=== PATIENT | male | born 1940 | race Asian ===

== ENCOUNTER 2016-08-19 11:49 | Emergency (ER) | payer MEDICARE, OTHER ==
[~2016-08-19] VITALS: Ht 175.3 cm; Wt 94.4 kg
[2016-08-19] MEDS ORDERED: SODIUM CHLORIDE FLUSH 10ML SYR IVF ONE (12:30)
[2016-08-19] MEDS ORDERED: ASPIRIN 81 MG TABLET CHEW PO ONE (12:30)
[2016-08-19] MEDS ORDERED: ATOR80TA75 PO (12:30)
[2016-08-19] MEDS ORDERED: SODIUM CHLORIDE 0.9% 1,000ML IVBOLUS ONE (12:30)
[2016-08-19] MEDS ORDERED: METF500T4 PO (12:30)
[2016-08-19] MEDS ORDERED: LISI-167 PO (12:30)
[2016-08-19] MEDS ORDERED: ASPI81TA50 PO (12:30)
[2016-08-19] MEDS ORDERED: ASPIRIN 81 MG TABLET CHEW ONE (12:32)
[2016-08-19 12:47] LABS: BLOOD UREA NITROGEN 14 mg/dL (7-18)
[2016-08-19 12:53] LABS: ASPARTATE AMINO TRANSFERASE 19 U/L (15-37)
[2016-08-19 12:55] LABS: IS PT STATUS REG ER OR PRE ER? YES
[2016-08-19 13:49] VITALS: BP 169/90
== END 2016-08-19 13:51 | disposition home or self-care (01) ==
LOC: ED 12:54
DX: R00.2 Palpitations (principal); I10 Essential (primary) hypertension; E11.9 Type 2 diabetes mellitus without complications; E78.00 Pure hypercholesterolemia, unspecified
CPT/HCPCS: 36415; 71010; 80053; 83880; 84484; 85025; 93005; 99285; J7030

== ENCOUNTER → 2016-11-14 | Outpatient (CLI) | payer OTHER ==
[~2016-11-14] MED LIST: ASPI81TA50 PO; ATOR80TA75 PO; LISI-167 PO; METF500T4 PO
== END | disposition home or self-care (01) ==
LOC: CFH 08:14
PROVIDERS: ATTEND Physician Assistant Medical
DX: R94.31 Abnormal electrocardiogram [ECG] [EKG] (principal); I10 Essential (primary) hypertension
CPT/HCPCS: 78452; 93017; A9502

== ENCOUNTER 2018-10-10 10:51 | Inpatient (IN) | payer MEDICARE, OTHER ==
[~2018-10-10] VITALS: Ht 175.3 cm; Wt 79.8 kg
[~2018-10-10 10:51] MED LIST changes: +ATOR-2 PO; -ATOR80TA75 PO; +METF500T17 PO; -METF500T4 PO
[2018-10-10] MEDS ORDERED: SODIUM CHLORIDE FLUSH 10ML SYR IVF ONE (11:30)
[2018-10-10 11:53] LABS: BASOPHILS # (AUTO) 0.01 x10^3/uL (0-0.1); BASOPHILS % (AUTO) 0 % (0-1); EOSINOPHILS # (AUTO) 0.01 x10^3/uL (0-0.4); EOSINOPHILS % (AUTO) 0 % (1-7); LYMPHOCYTES % (AUTO) 11 % (22-44); MD NO; MEAN CORPUSCULAR HEMOGLOBIN 29.3 pg (27.5-34.5); MEAN CORPUSCULAR HGB CONC 32.6 g/dL (33.2-36.2); MEAN CORPUSCULAR VOLUME 89.9 fL (81-97); MEAN PLATELET VOLUME 8.1 fL (7.4-10.4); MONOCYTES # (AUTO) 0.41 x10^3/uL (0.2-0.8); MONOCYTES % (AUTO) 5 % (2-9); NEUTROPHILS # (AUTO) 7.72 x10^3/uL (1.8-6.8); NEUTROPHILS % (AUTO) 84 % (42-75); PLATELET COUNT 188 x10^3/uL (130-400); RED BLOOD COUNT 4.09 x10^6/uL (4.38-5.82); RED CELL DISTRIBUTION WIDTH 14.7 % (9.4-14.8)
[2018-10-10 12:03] LABS: INTERNATIONAL NORMALIZED RATIO 1.05 (0.93-1.1)
[2018-10-10 12:04] LABS: ALANINE AMINOTRANSFERASE 22 U/L (12-78); ANION GAP 7 mmol/L (5-15); CALCIUM 8.3 mg/dL (8.5-10.1); CHLORIDE 109 mmol/L (98-107)
[2018-10-10 12:09] LABS: ALKALINE PHOSPHATASE 64 U/L (45-117); BILIRUBIN,TOTAL 0.4 mg/dL (0.2-1.0); CREATININE 0.88 mg/dL (0.7-1.3); TOTAL PROTEIN 6.2 g/dL (6.4-8.2); TROPONIN I 0.106 ng/mL (0.000-0.045)
--- NOTE | 2018-10-10 12:59 | NUR ---
RECEIVED REPORT FROM JITENDRA CHAVARRIA AND ASSUMED CARE OF PT. FAMILY AT BEDSIDE. PT ON MONITOR, AFIB. AWARE OF INTENTION TO ADMIT.
[2018-10-10] MEDS ORDERED: PANTOPRAZOLE 80 MG in SODIUM CHLORIDE 0.9% 50 ML IV ONE (14:30)
[2018-10-10] MEDS ORDERED: SODIUM CHLORIDE FLUSH 10ML SYR IVF PRN (14:30)
[2018-10-10] MEDS ORDERED: LISI-170 PO (14:36)
--- NOTE | 2018-10-10 14:59 | NUR ---
HOSPITALIST AT BEDSIDE EXAMINING PT. PT GIVING CLEAR ANSWERS ABOUT HISTORY.
--- NOTE | 2018-10-10 15:11 | NUR ---
Lunch break RN: Pt aware of admission status. Protonix bolus hung. Family @ BS, call light within reach.
--- NOTE | 2018-10-10 16:08 | NUR ---
REPORT TO GARCIA CHAVARRIA.
[2018-10-10] MEDS ORDERED: ONDANSETRON ODT 4 MG PO PRN (17:00)
[2018-10-10] MEDS ORDERED: ONDANSETRON 2MG/ML, 2ML IVPush PRN (17:00)
[2018-10-10] MEDS ORDERED: LABETALOL 5MG/ML, 20ML IVPush PRN (17:00)
[2018-10-10] MEDS: PANTOPRAZOLE 80 MG in SODIUM CHLORIDE 0.9% 100 ML IV SCH (17:45)
[2018-10-10 17:52] LABS: FREE T4 (FREE THYROXINE) 0.92 ng/dL (0.76-1.46); TROPONIN I 0.106 ng/mL (0.000-0.045)
[2018-10-10 19:35] VITALS: BP 98/58
[2018-10-10 20:43] LABS: MICROSCOPIC NOT IND
[2018-10-10 20:55] LABS: CULTURE INDICATED? NO
[2018-10-10] MEDS ORDERED: ATORVASTATIN 80 MG TABLET PO SCH (21:00)
[2018-10-10] MEDS: ATORVASTATIN 80 MG TABLET PO SCH (21:09)
[2018-10-10] MEDS ORDERED: CAPSAICIN CRM 0.075%, 60GM TP PRN (23:00)
[2018-10-10 23:09] LABS: TROPONIN I 0.102 ng/mL (0.000-0.045)
[2018-10-11 00:56] VITALS: BP 128/71
[2018-10-11] MEDS: PANTOPRAZOLE 80 MG in SODIUM CHLORIDE 0.9% 100 ML IV SCH ×2 (01:53→11:21)
[2018-10-11 05:20] LABS: BASOPHILS # (AUTO) 0.02 x10^3/uL (0-0.1); BASOPHILS % (AUTO) 0 % (0-1); EOSINOPHILS # (AUTO) 0.05 x10^3/uL (0-0.4); EOSINOPHILS % (AUTO) 1 % (1-7); LYMPHOCYTES # (AUTO) 1.65 x10^3/uL (1-3.4); LYMPHOCYTES % (AUTO) 24 % (22-44); MD NO; MEAN CORPUSCULAR HEMOGLOBIN 29.4 pg (27.5-34.5); MEAN CORPUSCULAR HGB CONC 31.9 g/dL (33.2-36.2); MEAN CORPUSCULAR VOLUME 92.2 fL (81-97); MEAN PLATELET VOLUME 8.8 fL (7.4-10.4); MONOCYTES # (AUTO) 0.55 x10^3/uL (0.2-0.8); MONOCYTES % (AUTO) 8 % (2-9); NEUTROPHILS # (AUTO) 4.58 x10^3/uL (1.8-6.8); NEUTROPHILS % (AUTO) 67 % (42-75); PLATELET COUNT 177 x10^3/uL (130-400); RED BLOOD COUNT 3.69 x10^6/uL (4.38-5.82)
[2018-10-11 05:32] LABS: CALCIUM 8.3 mg/dL (8.5-10.1); CHLORIDE 111 mmol/L (98-107)
[2018-10-11 05:46] LABS: ALANINE AMINOTRANSFERASE 22 U/L (12-78); ALBUMIN 2.9 g/dL (3.4-5.0); ALKALINE PHOSPHATASE 65 U/L (45-117); ANION GAP 5 mmol/L (5-15); BILIRUBIN,TOTAL 0.5 mg/dL (0.2-1.0); THYROID STIMULATING HORMONE 0.318 mIU/L (0.358-3.740)
[2018-10-11 08:24] LABS: TROPONIN I 0.106 ng/mL (0.000-0.045)
[2018-10-11 08:59] VITALS: BP 130/70
[2018-10-11] MEDS: LISINOPRIL 20 MG TABLET PO SCH (09:47)
[2018-10-11] MEDS: D5%-0.45NACL+KCL 20MEQ 1,000 ML IV SCH ×2 (11:21→20:47)
[2018-10-11 14:58] VITALS: BP 123/81
[2018-10-11] MEDS ORDERED: PROPOFOL 10 MG/ML, 20ML ONE (15:53)
[2018-10-11 20:00] VITALS: BP 115/61
[2018-10-11] MEDS: ATORVASTATIN 80 MG TABLET PO SCH (20:47)
[2018-10-12 00:33] VITALS: BP 114/67
[2018-10-12] MEDS: PANTOPRAZOLE 80 MG in SODIUM CHLORIDE 0.9% 100 ML IV SCH (01:38)
[2018-10-12] MEDS: D5%-0.45NACL+KCL 20MEQ 1,000 ML IV SCH (03:45)
[2018-10-12 05:29] LABS: ALBUMIN 2.9 g/dL (3.4-5.0); ANION GAP 6 mmol/L (5-15); BASOPHILS # (AUTO) 0.02 x10^3/uL (0-0.1); BASOPHILS % (AUTO) 0 % (0-1); CHLORIDE 111 mmol/L (98-107); EOSINOPHILS # (AUTO) 0.05 x10^3/uL (0-0.4); EOSINOPHILS % (AUTO) 1 % (1-7); LYMPHOCYTES # (AUTO) 1.43 x10^3/uL (1-3.4); LYMPHOCYTES % (AUTO) 24 % (22-44); MD NO; MEAN CORPUSCULAR HEMOGLOBIN 29.9 pg (27.5-34.5); MEAN CORPUSCULAR HGB CONC 32.6 g/dL (33.2-36.2); MEAN CORPUSCULAR VOLUME 91.6 fL (81-97); MEAN PLATELET VOLUME 8.6 fL (7.4-10.4); MONOCYTES # (AUTO) 0.42 x10^3/uL (0.2-0.8); MONOCYTES % (AUTO) 7 % (2-9); NEUTROPHILS # (AUTO) 4.11 x10^3/uL (1.8-6.8); NEUTROPHILS % (AUTO) 68 % (42-75); PLATELET COUNT 181 x10^3/uL (130-400); RED BLOOD COUNT 3.35 x10^6/uL (4.38-5.82); RED CELL DISTRIBUTION WIDTH 14.8 % (9.4-14.8)
[2018-10-12 05:33] LABS: ALANINE AMINOTRANSFERASE 20 U/L (12-78); ALKALINE PHOSPHATASE 67 U/L (45-117); BILIRUBIN,TOTAL 0.6 mg/dL (0.2-1.0); CREATININE 0.91 mg/dL (0.7-1.3)
[2018-10-12 07:45] VITALS: BP 131/63
[2018-10-12] MEDS: LISINOPRIL 20 MG TABLET PO SCH (08:03)
[2018-10-12] MEDS: PANTOPRAZOLE 40 MG IV IVPush SCH ×2 (09:59→20:34)
[2018-10-12] MEDS ORDERED: FUROSEMIDE 20 MG TABLET PO SCH (11:00)
[2018-10-12 12:53] VITALS: BP 138/65
[2018-10-12 19:30] VITALS: BP 101/61
[2018-10-12] MEDS: ATORVASTATIN 80 MG TABLET PO SCH (20:34)
[2018-10-12] MEDS ORDERED: SPIRONOLACTONE 25 MG TABLET PO SCH (21:00)
[2018-10-13 01:06] VITALS: BP 108/63
[2018-10-13 05:46] LABS: BASOPHILS # (AUTO) 0.01 x10^3/uL (0-0.1); BASOPHILS % (AUTO) 0 % (0-1); EOSINOPHILS # (AUTO) 0.07 x10^3/uL (0-0.4); EOSINOPHILS % (AUTO) 1 % (1-7); LYMPHOCYTES # (AUTO) 1.35 x10^3/uL (1-3.4); LYMPHOCYTES % (AUTO) 26 % (22-44); MD NO; MEAN CORPUSCULAR HEMOGLOBIN 29.6 pg (27.5-34.5); MEAN CORPUSCULAR HGB CONC 32.1 g/dL (33.2-36.2); MEAN CORPUSCULAR VOLUME 92.2 fL (81-97); MEAN PLATELET VOLUME 8.3 fL (7.4-10.4); MONOCYTES # (AUTO) 0.46 x10^3/uL (0.2-0.8); MONOCYTES % (AUTO) 9 % (2-9); NEUTROPHILS # (AUTO) 3.33 x10^3/uL (1.8-6.8); NEUTROPHILS % (AUTO) 64 % (42-75); PLATELET COUNT 176 x10^3/uL (130-400); RED BLOOD COUNT 3.32 x10^6/uL (4.38-5.82); RED CELL DISTRIBUTION WIDTH 15.1 % (9.4-14.8)
[2018-10-13 06:02] LABS: ALANINE AMINOTRANSFERASE 31 U/L (12-78); ALBUMIN 2.6 g/dL (3.4-5.0); ANION GAP 6 mmol/L (5-15); CALCIUM 7.8 mg/dL (8.5-10.1); CHLORIDE 110 mmol/L (98-107); CREATININE 1.03 mg/dL (0.7-1.3)
[2018-10-13 06:04] LABS: ALKALINE PHOSPHATASE 64 U/L (45-117); BILIRUBIN,TOTAL 0.3 mg/dL (0.2-1.0); TOTAL PROTEIN 5.7 g/dL (6.4-8.2)
[2018-10-13 07:46] VITALS: BP 125/73
[2018-10-13] MEDS: LISINOPRIL 20 MG TABLET PO SCH (08:53)
[2018-10-13] MEDS: PANTOPRAZOLE 40 MG IV IVPush SCH (08:53)
[2018-10-13 13:20] VITALS: BP 133/88
[2018-10-13] MEDS ORDERED: OMEPRAZOLE 20 MG CAPSULE.DR PO SCH (16:00)
[2018-10-13] MEDS ORDERED: ATOR-2 PO (17:30)
[2018-10-13] MEDS ORDERED: OMEP-110 PO (17:30)
== END 2018-10-13 20:44 | disposition home or self-care (01) | DRG 308 ==
LOC: ED 12:03 → EDIP 15:02 → 5SO 16:38
PROVIDERS: ADMIT Hospitalist; ATTEND Hospitalist
PROC: 0W3P8ZZ Control Bleeding in Gastrointestinal Tract, Via Natural or Artificial Opening Endoscopic (ICD-10-PCS; 2018-10-11)
PROC: 3E0G8GC Introduction of Other Therapeutic Substance into Upper GI, Via Natural or Artificial Opening Endoscopic (ICD-10-PCS; 2018-10-11)
PROC: 0DB68ZX Excision of Stomach, Via Natural or Artificial Opening Endoscopic, Diagnostic (ICD-10-PCS; principal; 2018-10-11 13:00)
DX: I48.0 Paroxysmal atrial fibrillation (principal); K25.4 Chronic or unspecified gastric ulcer with hemorrhage; D68.69 Other thrombophilia; E87.2 Acidosis; D50.0 Iron deficiency anemia secondary to blood loss (chronic); E11.9 Type 2 diabetes mellitus without complications; E78.00 Pure hypercholesterolemia, unspecified; E78.5 Hyperlipidemia, unspecified; I10 Essential (primary) hypertension; Z79.82 Long term (current) use of aspirin; Z79.899 Other long term (current) drug therapy; Z82.49 Family history of ischemic heart disease and other diseases of the circulatory system; Z85.038 Personal history of other malignant neoplasm of large intestine; Z86.711 Personal history of pulmonary embolism; Z87.11 Personal history of peptic ulcer disease; Z87.891 Personal history of nicotine dependence
CPT/HCPCS: 36415; 71045; 71275; 80053; 81003; 83605; 83735; 83880; 84100; 84439; 84443; 84484; 85014; 85018; 85025; 85610; 85730; 86850; 86900; 88305; 88342; 93005; 93306; 93880; 96365; G0378; J2704; A4648; C9113; J3480

== ENCOUNTER 2019-03-21 05:42 | Emergency (ER) | payer MEDICARE, OTHER ==
[~2019-03-21] VITALS: Ht 175.3 cm; Wt 81.0 kg
[~2019-03-21 05:42] MED LIST changes: +LISI-170 PO; +OMEP-110 PO
[2019-03-21 05:44] VITALS: BP 171/119
[2019-03-21] MEDS ORDERED: DIPH,PERTUSS(ACELL),TET VAC/PF 0.5 ML IM-VACC ONE (06:00)
--- NOTE | 2019-03-21 06:17 | NUR ---
BIB [facility] FOR [facility], HIT HIS HEAD. NO LOC, N/V. C/O NECK PAIN. C SPINE COLLAR IN PLACE
--- NOTE | 2019-03-21 06:53 | NUR ---
report to jennie dumont
--- NOTE | 2019-03-21 06:57 | NUR ---
RECEIVED BEDSIDE REPORT FROM AURA VUONG. PT STANDING BEDSIDE USING URINAL. PER REPORT, PT LOST BALANCE AT WORK AND FELL.
--- NOTE | 2019-03-21 07:18 | NUR ---
PT TO IMAGING.
[2019-03-21] MEDS ORDERED: LIDOCAINE-MPF 1%, 5ML ONE (07:39)
[2019-03-21] MEDS ORDERED: NEOSPORIN OINT. PKT 1 PACKET ONE (08:45)
--- NOTE | 2019-03-21 08:51 | NUR ---
Patient/Caregiver given discharge instructions and they have confirmed that they understand the instructions. Patient ambulatory with steady gait. PT LEFT WITH ALL PERSONAL BELONGINGS.
== END 2019-03-21 08:53 | disposition home or self-care (01) ==
LOC: ED 07:12
DX: S01.01XA Laceration without foreign body of scalp, initial encounter (principal); I48.91 Unspecified atrial fibrillation; E78.00 Pure hypercholesterolemia, unspecified; E11.9 Type 2 diabetes mellitus without complications; I10 Essential (primary) hypertension; M54.2 Cervicalgia; Z86.711 Personal history of pulmonary embolism; W18.09XA Striking against other object with subsequent fall, initial encounter; Y93.89 Activity, other specified; Y92.89 Other specified places as the place of occurrence of the external cause; Y99.0 Civilian activity done for income or pay
CPT/HCPCS: 12031; 70450; 72020; 72050; 99284

== ENCOUNTER 2019-03-29 06:51 | Emergency (ER) | payer OTHER ==
[~2019-03-29] VITALS: Ht 175.3 cm; Wt 86.5 kg
[2019-03-29 06:54] VITALS: BP 147/82
--- NOTE | 2019-03-29 07:35 | NUR ---
pt to ed from home for staple removal. R side head, healing head lac, scab noted. naila removed by tech. denies pain. A&Ox4 GCS 15. call marion in reach.
--- NOTE | 2019-03-29 07:52 | NUR ---
Patient/Caregiver given discharge instructions and they have confirmed that they understand the instructions. Patient ambulatory with steady gait.
== END 2019-03-29 07:53 | disposition home or self-care (01) ==
LOC: ED 07:27
DX: S01.01XD Laceration without foreign body of scalp, subsequent encounter (principal); X58.XXXD Exposure to other specified factors, subsequent encounter
CPT/HCPCS: 99282

== ENCOUNTER 2020-08-14 15:18 | Emergency (ER) | payer SELFPAY ==
[~2020-08-14] VITALS: Ht 177.8 cm; Wt 84.3 kg
--- NOTE | 2020-08-14 15:20 | NUR ---
PT BROUGHT IN BY [facility] FROM HOME CODE NEURO. PER EMS REPORT PT WAS LAST NORMAL AT 1330, FAMILY STATES AFTER NAP THEY FOUND HIM "UNRESPONSIVE, NO CPR. PT WOKE WITH RIGHT DEFICITS, SPONT MINIMAL MOVEMENT OF LEFT, RIGHT FACIAL DROOP, LEFT GAZE.
[2020-08-14 15:28] LABS: BASOPHILS % (AUTO) 0 % (0-1); EOSINOPHILS % (AUTO) 0 % (1-7); LYMPHOCYTES % (AUTO) 22 % (22-44); MEAN CORPUSCULAR HEMOGLOBIN 27.3 pg (27.5-34.5); MEAN PLATELET VOLUME 7.8 fL (7.4-10.4); MONOCYTES % (AUTO) 8 % (2-9); NEUTROPHILS % (AUTO) 69 % (42-75); PLATELET COUNT 194 x10^3/uL (130-400); RED BLOOD COUNT 4.42 x10^6/uL (4.38-5.82); RED CELL DISTRIBUTION WIDTH 16.5 % (9.4-14.8)
[2020-08-14 15:29] LABS: MD NO
[2020-08-14] MEDS ORDERED: ALTEPLASE 1 ML ONE (15:39)
[2020-08-14] MEDS ORDERED: OMNIPAQUE 350 MG/ML, 100ML BOTTLE ONE (15:44)
--- NOTE | 2020-08-14 15:45 | NUR ---
DILIA YOUNG AT [facility] EFOR EVALUATION. [facility] AT BEDSIDE, UPDATED ON POC
[2020-08-14 15:53] LABS: INTERNATIONAL NORMALIZED RATIO 1.1 (0.93-1.1); PROTHROMBIN TIME 11.7 Seconds (9.6-11.5)
--- NOTE | 2020-08-14 15:53 | NUR ---
CONSULT PLACED TO DR PHILIPPE
--- NOTE | 2020-08-14 16:00 | NUR ---
DR. PHILIPPE AT BEDSIDE FOR EVALUATION.
--- NOTE | 2020-08-14 16:05 | NUR ---
CONSULT TO [facility] FOR POSSIBLE TRANSFER
--- NOTE | 2020-08-14 16:10 | NUR ---
TPA DOSE PREPPED AND VERIFIED BY SHIVAM CHAVARRIA
--- NOTE | 2020-08-14 16:11 | NUR ---
OK TO START TPA PER DR PHILIPPE.
[2020-08-14] MEDS ORDERED: ALTEPLASE IV ONE ×3 (16:15→16:30)
[2020-08-14 16:30] VITALS: BP 129/96
--- NOTE | 2020-08-14 16:30 | NUR ---
VSS, TPA INFUSING, SCANT BLEEDING FROM GUMS, NO OTHER SIGNS OF BLEEDING. PT MORE RESPONSIVE TO VERBAL STIMULI, INCRESASED SPONT MOVEMENT TO LEFT ARM.
--- NOTE | 2020-08-14 16:45 | NUR ---
REPORT CALLED TO GARCIA CHAVARRIA, C IR
--- NOTE | 2020-08-14 16:50 | NUR ---
REPORT CALLED TO SUELLEN CHAVARRIA [facility]
--- NOTE | 2020-08-14 17:05 | NUR ---
Bedside report to Gino CHAVARRIA, pt transported to [facility]. belongings taken by pts .
== END 2020-08-14 17:36 | disposition short-term general hospital (02) ==
LOC: ED 17:10
DX: I63.512 Cerebral infarction due to unspecified occlusion or stenosis of left middle cerebral artery (principal); I10 Essential (primary) hypertension; E11.9 Type 2 diabetes mellitus without complications; I48.91 Unspecified atrial fibrillation; E78.00 Pure hypercholesterolemia, unspecified; Z79.899 Other long term (current) drug therapy
CPT/HCPCS: 36415; 37195; 70450; 70496; 70498; 80047; 85025; 85610; 85730; 93005; 99291; J2997; Q9967